=== PATIENT | male | born 1975 | race Asian ===

== ENCOUNTER 2017-11-05 03:16 | Emergency (ER) | payer MEDICAID ==
[2017-11-05] MEDS ORDERED: IOHEXOL 350 MG/ML 10 ML VIAL (for RAD DIAG) IVCONTRAST ONE (03:17)
[2017-11-05 03:19] VITALS: BP 118/76; PULSE 131; RESP 22; TEMP 98.4; O2SAT 98
[2017-11-05 03:30] VITALS: BP 117/76; PULSE 124; RESP 18; O2SAT 97
[2017-11-05] MEDS ORDERED: SODIUM CHLOR 0.9% 1000 ML INJ 1,000 ML IV SCH (03:30)
[2017-11-05] MEDS ORDERED: PROMETHAZINE INJ 25 MG/ML VIAL IM ONE (03:30)
--- NOTE | 2017-11-05 03:43 | PD ---
HPI Chief Complaint: Chest Pain Time Seen by Provider: 03:24 Travel History International Travel<30 days: No Contact w/Intl Traveler<30days: No Traveled to known affect area: No History of Present Illness HPI This is a 42-year-old male who presents to the emergency department after drinking a large amount of hard liquor with onset of chest discomfort that started an hour ago, constant, sharp and stabbing, nonradiating associated with multiple episodes of vomiting. He does feel some shortness of breath. He denies any abdominal pain. He's never had pain like this before. PFS Past Medical History Medical History: Denies Significant Hx Tetanus Vaccination: < 5 Years Influenza Vaccination: No Past Surgical History Surgical History: No Previous Surgery Social History Alcohol Use: Yes (OCC) Tobacco Use: No Substance Use: No Allergies-Medications (Allergen,Severity, Reaction): Coded Allergies: No Known Drug Allergies (Verified Allergy, Unknown, 11/05/17) Reported Meds & Prescriptions Reported Meds & Active Scripts Active No Active Prescriptions or Reported Medications Review of Systems Except as stated in HPI: all other systems reviewed are Neg Physical Exam Narrative GENERAL: Uncomfortable appearing. Actively vomiting. SKIN: Focused skin assessment warm and dry. HEAD: Atraumatic. Normocephalic. EYES: Pupils equal and round. No injection or drainage. ENT: Moist mucous membranes NECK: Trachea midline. CARDIOVASCULAR: Regular rate and rhythm. No murmur appreciated. RESPIRATORY: Clear to auscultation. Breath sounds equal bilaterally. GASTROINTESTINAL: Abdomen soft, non-tender, nondistended. MUSCULOSKELETAL: No obvious deformities. NEUROLOGICAL: Awake and alert. No obvious cranial nerve deficits. Moving all extremities. PSYCHIATRIC: Appropriate mood and affect; insight and judgment normal. Data Data Last Documented VS Vital Signs Date Time Temp Pulse Resp B/P (MAP) Pulse Ox O2 Delivery O2 Flow Rate FiO2 11/05/17 03:30 124 18 117/76 (90) 97 11/05/17 03:19 98.4 Room Air Orders Orders Electrocardiogram (11/05/17 03:27) Complete Blood Count With Diff (11/05/17 03:27) Comprehensive Metabolic Panel (11/05/17 03:27) Prothrombin Time / Inr (Pt) (11/05/17 03:27) Act Partial Throm Time (Ptt) (11/05/17 03:27) Troponin I (11/05/17 03:27) Lipase (11/05/17 03:27) Chest, Single Ap (11/05/17 03:27) Ecg Monitoring (11/05/17 03:27) Bilateral Bp Monitoring (11/05/17 03:27) Iv Access Insert/Monitor (11/05/17 03:27) Oximetry (11/05/17 03:27) Oxygen Administration (11/05/17 03:27) Sodium Chlor 0.9% 1000 Ml Inj (Ns 1000 M (11/05/17 03:30) Promethazine Inj (Phenergan Inj) (11/05/17 03:30) Hydromorphone Pf Inj (Dilaudid Pf Inj) (11/05/17 04:15) Ct Thorax/ Chest W Iv Contrast (11/05/17 ) Iohexol 350 Inj (Omnipaque 350 Inj) (11/05/17 03:17) Alcohol (Ethanol) (11/05/17 05:36) Sodium Chlor 0.9% 1000 Ml Inj (Ns 1000 M (11/05/17 05:45) Labs Laboratory Tests Test 11/05/17 03:35 White Blood Count 17.7 TH/MM3 Red Blood Count 5.03 MIL/MM3 Hemoglobin 15.3 GM/DL Hematocrit 44.9 % Mean Corpuscular Volume 89.2 FL Mean Corpuscular Hemoglobin 30.5 PG Mean Corpuscular Hemoglobin Concent 34.2 % Red Cell Distribution Width 13.1 % Platelet Count 347 TH/MM3 Mean Platelet Volume 7.3 FL Neutrophils (%) (Auto) 90.3 % Lymphocytes (%) (Auto) 7.0 % Monocytes (%) (Auto) 2.5 % Eosinophils (%) (Auto) 0.0 % Basophils (%) (Auto) 0.2 % Neutrophils # (Auto) 16.0 TH/MM3 Lymphocytes # (Auto) 1.2 TH/MM3 Monocytes # (Auto) 0.4 TH/MM3 Eosinophils # (Auto) 0.0 TH/MM3 Basophils # (Auto) 0.0 TH/MM3 CBC Comment DIFF FINAL Differential Comment Prothrombin Time 10.1 SEC Prothromb Time International Ratio 1.0 RATIO Activated Partial Thromboplast Time 21.5 SEC Blood Urea Nitrogen 18 MG/DL Creatinine 0.99 MG/DL Random Glucose 123 MG/DL Total Protein 7.6 GM/DL Albumin 4.0 GM/DL Calcium Level 7.8 MG/DL Alkaline Phosphatase 71 U/L Aspartate Amino Transf (AST/SGOT) 29 U/L Alanine Aminotransferase (ALT/SGPT) 30 U/L Total Bilirubin 0.2 MG/DL Sodium Level 144 MEQ/L Potassium Level 3.1 MEQ/L Chloride Level 107 MEQ/L Carbon Dioxide Level 25.2 MEQ/L Anion Gap 12 MEQ/L Estimat Glomerular Filtration Rate 83 ML/MIN Troponin I LESS THAN 0.02 NG/ML Lipase 88 U/L Ethyl Alcohol Level 123 MG/DL [facility] Medical Decision Making Medical Screen Exam Complete: Yes Emergency Medical Condition: Yes Interpretation(s) afebrile, tachycardic, normotensive leukocytosis with 90% neutrophils mild hypokalemia troponin .02 lipase normal alcohol 123 Differential Diagnosis Acute coronary syndrome, alcoholic gastritis, pancreatitis, Boerhaave's Narrative Course This is a 42-year-old male who presents to the emergency Department with onset of chest pain and vomiting following drinking a large amount of hard liquor. He is otherwise healthy and has no risk factors for coronary artery disease. He is placed in a monitored an IV was established. EKG was nonischemic. Labs demonstrated an alcohol of 123 and a leukocytosis of 17 which I suspect is a stress response in the setting of vomiting. The patient was actively vomiting when he arrived but improved significantly after Phenergan and IV fluids. He likes to go home. I suspect this is alcoholic gastritis. I don't think he requires any additional cardiac workup. Patient will be discharged. Diagnosis Primary Impression: Alcoholic gastritis Qualified Codes: K29.20 - Alcoholic gastritis without bleeding Patient Instructions: General Instructions Additional Instructions: If you develop severe or worsening abdominal pain, fever>100.4, persistent vomiting or inability to eat or drink return to the emergency department immediately. Follow up with your primary care physician in 1-2 days for a check-up. Med/Other Pt SpecificInfo: No Change to Meds Scripts No Active Prescriptions or Reported Meds Disposition: 01 DISCHARGE HOME Condition: Stable Mima Ayala MD Nov 05, 2017 03:43
[2017-11-05 03:54] LABS: BASOPHIL % 0.2 % (0.0-2.0); HEMATOCRIT 44.9 % (39.0-51.0); HEMOGLOBIN 15.3 GM/DL (13.0-17.0); LYMPHOCYTE # 1.2 TH/MM3 (1.0-4.8); MEAN CELL VOLUME 89.2 FL (80.0-100.0); MEAN CORPUSCULAR HEMOGLOBIN 30.5 PG (27.0-34.0); MEAN CORPUSCULAR HGB CONC 34.2 % (32.0-36.0); MEAN PLATELET VOLUME 7.3 FL (7.0-11.0); MONO % 2.5 % (0.0-8.0); MONOCYTE # 0.4 TH/MM3 (0-0.9); NEUT % 90.3 % (16.0-70.0); PLATELET COUNT 347 TH/MM3 (150-450); RED BLOOD COUNT 5.03 MIL/MM3 (4.50-5.90); RED CELL DISTRIBUTION WIDTH 13.1 % (11.6-17.2); WHITE BLOOD COUNT 17.7 TH/MM3 (4.0-11.0)
[2017-11-05 03:59] LABS: PROTHROMBIN TIME - PATIENT 10.1 SEC (9.8-11.6)
[2017-11-05 04:07] LABS: ALT (GPT) 30 U/L (12-78); AST (GOT) 29 U/L (15-37); BICARBONATE 25.2 MEQ/L (21.0-32.0); BLOOD UREA NITROGEN 18 MG/DL (7-18); CALCIUM 7.8 MG/DL (8.5-10.1); CHLORIDE 107 MEQ/L (98-107); CREATININE 0.99 MG/DL (0.60-1.30); GLOMERULAR FILTRATION RATE 83 ML/MIN (>89); GLUCOSE,RANDOM 123 MG/DL (74-106); LIPASE 88 U/L (73-393); SODIUM (NA) 144 MEQ/L (136-145)
[2017-11-05 04:10] LABS: ALKALINE PHOSPHATASE 71 U/L (45-117); TOTAL BILIRUBIN ADULT 0.2 MG/DL (0.2-1.0); TOTAL PROTEIN 7.6 GM/DL (6.4-8.2); TROPONIN I LESS THAN 0.02 NG/ML (0.02-0.05)
[2017-11-05] MEDS ORDERED: HYDROmorphone HCL PF 2 MG/ML VIAL IV PUSH ONE (04:15)
--- NOTE | 2017-11-05 04:44 | RADRPT ---
EXAM DATE/TIME: 11/05/2017 03:51 [facility] COMPARISON: No previous studies available for comparison. INDICATIONS : Chest pain. MEDICAL HISTORY : None. SURGICAL HISTORY : None. ENCOUNTER: Initial ACUITY: 1 day PAIN SCORE: 7/10 LOCATION: Bilateral chest FINDINGS: The lungs are clear without infiltrate, nodule, or mass. There is no appreciable pleural effusion fo r technique. Heart and mediastinum are unremarkable. CONCLUSION: No acute cardiopulmonary disease. Sadaf Howell MD on November 05, 2017 at 4:42 Board Certified Radiologist. This report was verified electronically.
--- NOTE | 2017-11-05 05:05 | RADRPT ---
EXAM DATE/TIME: 11/05/2017 04:47 [facility] COMPARISON: No previous studies available for comparison. INDICATIONS : Chest pain with vomiting. IV CONTRAST: 70 cc Omnipaque 350 (iohexol) IV RADIATION DOSE: 3.53 CTDIvol (mGy) MEDICAL HISTORY : None SURGICAL HISTORY : None. ENCOUNTER: Initial ACUITY: 1 day PAIN SCALE: 10/10 LOCATION: Left chest TECHNIQUE: Volumetric scanning of the chest was performed. Using automated exposure control and adjustment of t he mA and/or kV according to patient size, radiation dose was kept as low as reasonably achievable to obtain optimal diagnostic quality images. DICOM format image data is available electronically for review and comparison. Follow-up recommendations for detected pulmonary nodules are based at a minimum on nodule size and pa tient risk factors according to Fleischner Society Guidelines. FINDINGS: The lungs are clear without infiltrate, nodule, or mass. There is no pleural effusion. No appreciab le pathological adenopathy is seen within the mediastinum. Small hiatal hernia is present with a tiny cyst in the liver. CONCLUSION: Small hiatal hernia. Sadaf Howell MD on November 05, 2017 at 4:59 Board Certified Radiologist. This report was verified electronically.
[2017-11-05] MEDS ORDERED: SODIUM CHLOR 0.9% 1000 ML INJ 1,000 ML IV ONE (05:45)
[2017-11-05 06:19] VITALS: BP 106/67
--- NOTE | 2017-11-05 17:28 | EKG ---
Date Performed: 11/05/2017 Time Performed: 03:26:43 PTAGE: 42 years EKG: SINUS TACHYCARDIA WITH SHORT KS INTERVAL NONSPECIFIC T-WAVE ABNORMALITY ABNORMAL RHYTHM ECG NO PREVIOUS TRACING DOCTOR: Linda Briggs Interpretating Date/Time 11/05/2017 17:27:31
== END 2017-11-05 06:24 | disposition home or self-care (01) ==
LOC: NEPC 03:16
DX: K29.20 Alcoholic gastritis without bleeding (principal); R06.02 Shortness of breath
CPT/HCPCS: 71010; 71260; 80053; 80307; 83690; 84484; 85025; 85610; 85730; 93005; 96361; 96372; 96374; 99285; J1170; J2550; J7030; Q9967